=== PATIENT | male | born 1985 | race Caucasian/White ===

== ENCOUNTER 2016-09-06 12:24 | Emergency (ER) | payer OTHER ==
[~2016-09-06] VITALS: Ht 188 cm; Wt 170.8 kg
[2016-09-06 12:36] VITALS: BP 165/97; PULSE 103; TEMP 36.6; O2SAT 95; Ht 188 cm; Wt 170.8 kg
[2016-09-06] MEDS ORDERED: OXYC1TAB3 PO (13:28)
[2016-09-06] MEDS ORDERED: CYCL10TA6 PO (13:28)
--- NOTE | 2016-09-08 19:29 | EMERGENCY ROOM VISIT NOTE ---
ED Visit Note First contact with patient: 13:08 Chief Complaint: Back pain. History of Present Illness: Mr. Aguilar is a 31-year-old white male who ambulates into the ED complaining of lumbar back pain. Historically patient reports when he played football in high school he injured his lumbar back. He reports the person who is taking care of him reported that he had a hairline fracture of one of the lumbar vertebrae. He doesn't remember which vertebrae. He reports he never had x-rays of his spine and he never had follow-up. Since that time he reports intermittently he gets lumbar back pain and has never had it evaluated in the past. Patient reports approximately 3-4 hours ago he was bending over to pick something that fell on the ground and he felt a popping sensation in his lower back. He reports since that time he has been having severe lumbar back pain. He reports his pain as a bandlike discomfort in the L5-S1 area from one sacroiliac joint to the other. He rates his discomfort 7/10. His pain worsens with all movements at the waist and palpation. He has not identified any alleviating factors related to the pain. He has not taken any medications for pain prior to arrival at the hospital. He denies any associated symptoms including fevers, chills, sweats, recent repetitive for direct trauma, abdominal pain, nausea, vomiting, diarrhea, constipation, rectal bleeding, black /tarry stools, urinary symptoms, hematuria, genital paresthesias, bowel and bladder dysfunction, lower extremity weakness/numbness/tingling. Review of Systems: As noted above in history of present illness. 8 body systems were reviewed and found to be negative as noted above. Past Medical History: As previously noted, diabetes, hypertension. Current Medications: Patient denies. Allergies to Medications: Acetaminophen. Social History: Patient is not employed; he feels safe in his home environment; he admits to tobacco and alcohol use. Physical Examination: Vital Signs: Date Time Temp Pulse Resp B/P (MAP) Pulse Ox O2 Delivery O2 Flow Rate FiO2 09/06/16 12:36 36.6 103 22 165/97 95 Room Air GENERAL: 31-year-old male in mild to moderate distress due to pain, nontoxic- appearing, afebrile and hemodynamically stable. NEUROLOGICAL: Awake, alert and oriented to person, place and time. Answering questions appropriately and following commands. Normal gait. Good hand eye coordination. No focal motor or sensory deficits. SKIN: Warm, dry and pink. No soft tissue eruptions or trauma noted. HEENT: Atraumatic and normocephalic. BACK: No tenderness over the bony cervical, thoracic and lumbar spines. No bony deformity, step-offs, swelling or ecchymosis. Moderate tenderness in the lumbar paraspinous musculature in the L4 through S1 area bilaterally with significant muscle spasm. Decreased range of motion in all movements at the waist due to pain and body habitus. Negative straight leg raise test. No CVA tenderness. THORAX: Lungs sounds are clear to auscultation and equal bilaterally with symmetrical chest wall. ABDOMEN: Obese, soft and nontender. Positive bowel sounds in all quadrants. No guarding, rigidity or organomegaly. LOWER EXTREMITIES: No gross bony deformities. No shortening or malrotation. No tenderness in the hip, knees, ankles or feet. 2+ patellar and Achilles deep tendon reflexes intact and equal bilaterally. 4/5 muscle strength in flexion, extension and abduction and abduction of the hips, flexion and extension of the knees and plantar flexion and dorsiflexion of the ankles. Throughout the legs and feet to skin was warm and pink and capillary refill is brisk. He is able to distinguish light sensations through all dermatomes of the lower legs. No calf tenderness or cords. No dependent edema. ED Course: Patient is assessed as noted above. Patient's medication list was reviewed; I noted that he listed hypertension and diabetes on his past medical history and question about this. He reports he has not seen his family doctor and multiple years and years ago he stopped all medications. Additionally he reports in the next 3-4 days she is supposed to follow-up with his family practitioner for both of these medical conditions. Patient was educated about today's findings and instructed on his treatment plan ; he verbalizes understanding and agreement with this plan. Clinical Impression: Lumbar back pain. Lumbar paraspinous muscle spasm. Disposition: Patient discharged home in stable condition; prior to departure he was reassessed and subjectively reported he was feeling the same. Plan: Comfort measures were discussed with the patient including rest, ice, proper lifting and moving techniques, a sliding pain scale of ibuprofen and OxyIR; he was given appropriate narcotic precautions and his name was checked on the state database and no red flags are identified. Additionally patient was given Flexeril for muscle spasm and instructed on achieves. Patient was encouraged to keep his upcoming appointment with his primary care provider and also discusses current back pain. Patient was encouraged return the ED for worsening/uncontrolled pain, uncontrolled fevers, vomiting, abdominal pain, rectal/genital paresthesias, bowel and bladder dysfunction, lower extremity weakness/numbness/tingling or any new/concerning symptoms.
== END 2016-09-06 13:34 | disposition home or self-care (01) ==
LOC: C.EDB 12:26 → C.EDD 13:34
DX: M54.5 Low back pain (principal); M62.830 Muscle spasm of back; E11.9 Type 2 diabetes mellitus without complications; I10 Essential (primary) hypertension; Z72.0 Tobacco use

== ENCOUNTER 2016-09-09 09:49 | Emergency (ER) | payer OTHER ==
[~2016-09-09] VITALS: Ht 188 cm; Wt 151.0 kg
[~2016-09-09 09:49] MED LIST: CYCL10TA6 PO; OXYC1TAB3 PO
[2016-09-09 09:54] VITALS: TEMP 36.4; Ht 188 cm; Wt 151.0 kg
[2016-09-09] MEDS ORDERED: MoRPHine SULFATE 10 MG/ML CARP/VIAL IM STA (10:19)
[2016-09-09] MEDS ORDERED: ONDANSETRON 4MG OD TAB PO ONE (10:30)
--- NOTE | 2016-09-09 10:37 | EMERGENCY ROOM VISIT NOTE ---
History Report prepared by Niranjan: Danitza Vivar Under the Supervision of: Dr. Julio Coates M.D. First contact with patient: 10:11 Chief Complaint: BACK PAIN Stated Complaint: BACK PAIN History of Present Illness The patient is a 31 year old male who presents to the Emergency Room with complaints of worsening lower back pain that started 2 days ago. He describes the pain as a sharp, stabbing pain. He denies abdominal pain. He was evaluated in the ED 2 days ago after walking on [employer] and experiencing a "popping" sensation in his back while bend over. The patient is from [place], but he came here because he was told to come back into the ED if his pain persisted or worsened. The patient states that he has not taken anything at home for the pain. He has not used ibuprofen or Motrin. He uses Flexeril as needed. He was prescribed pain medication after being evaluated in the ED. He states that the medication did not relieve his pain very long so he ran out of pills. The patient adds that he has an old football injury that causes him to have back pain. He also states that he was told in [place] that he has 4 bulging discs. He thinks that they diagnosed the bulging discs with a CT scan. The patient states that he does not work secondary to disability. Source of History: patient Onset: 2 days ago Position: back (lower) Quality: sharp, stabbing Timing: worsening Modifying Factors (Relieving): other (None) Associated Symptoms: No abdominal pain Review of Systems All systems have been listed, reviewed, and are negative other than those previously mentioned. Please see Additional Medical History Sheet. Past Medical & Surgical Medical Problems: (1) Diabetes (2) Hypertension Surgical Problems: (1) History of tonsillectomy Family History Diabetes mellitus Hypertension Social History Smoking Status: Never Smoker Alcohol Use: other (drinks an unspecificed amount) Marital Status: single Housing Status: lives with roommate Occupation Status: disabled Current/Historical Medications Scheduled PRN Cyclobenzaprine Hcl (Flexeril), 10 MG PO Q8 PRN for Muscle Spasms Ibuprofen Tab (Motrin), 600 MG PO Q6H PRN for Pain Allergies Coded Allergies: Acetaminophen (Unverified Adverse Reaction, Intermediate, NAUSEOUS, ) Physical Exam Vital Signs Date Time Temp Pulse Resp B/P (MAP) Pulse Ox O2 Delivery O2 Flow Rate FiO2 09/09/16 10:57 94 16 179/129 94 Room Air 09/09/16 09:54 36.4 100 18 172/117 96 Room Air Physical Exam GENERAL: Patient awake, alert, oriented x 3. Patient follows commands. Patient does not appear toxic. Patient is adequately hydrated and well- nourished. SKIN: No erythema, pallor, cyanosis or rash HEENT: Normal head, pupils equal, reactive to light and accommodation. LUNGS: Clear to auscultation. No wheezes, no rales, no rhonchi. HEART: No murmurs. No gallops. No rubs BACK: No deformity ABDOMEN: Obese, no masses, no rebound, no hepatomegaly or splenomegaly. EXTREMITIES: Negative straight leg raise bilaterally. No signs of trauma. No pedal or pretibial edema. No calf or thigh tenderness. NEUROLOGIC: Cranial nerves II-XII within normal limits. No gross motor sensory function deficits. Medical Decision & Procedures Medications Administered Medications (Trade) Dose Ordered Sig/Alexander Route Start Time Stop Time Status Last Admin Dose Admin Morphine Sulfate (MoRPHine SULFATE INJ) 10 mg NOW STAT IM 09/09/16 10:19 09/09/16 10:20 DC 09/09/16 10:27 10 MG Ondansetron HCl (Zofran Odt) 4 mg ONE ONCE PO 09/09/16 10:30 09/09/16 10:31 DC 09/09/16 10:28 4 MG ED Course 1011: Past medical records reviewed. The patient was evaluated in room C6. A complete history and physical examination was performed. 1019: Ordered Morphine Sulfate 10 mg IM 1030: Ordered Zofran Odt 4 mg PO 1106: Upon reevaluation, the patient appeared to have improvement of his symptoms. I discussed today's findings with him. He verbalized agreement of the treatment plan. He was discharged home. Medical Decision Nurses notes reviewed. Medical history sheet reviewed. Differential diagnosis includes but is not limited to: lumbar strain, ruptured nucleus pulposus, discitis, cauda equina. The patient appears to have acute on chronic lower back pain. He's had imaging studies in the past. The patient was given an IM injection of morphine which helped considerably. The patient states that he his pain was gone at time of discharge. The patient will be maintained on ibuprofen. He will need to follow -up with his family physician. The patient may need more imaging studies in the near future. The patient's blood pressure is elevated which may be partially due to his pain. He will need to follow-up regarding his hypertension. Blood Pressure Screening Patient's blood pressure: Elevated blood pressure Blood pressure disposition: Referred to PCP Impression Primary Impression: Low back pain Additional Impression: Hypertension Scribe Attestation The scribe's documentation has been prepared under my direction and personally reviewed by me in its entirety. I confirm that the note above accurately reflects all work, treatment, procedures, and medical decision making performed by me. Departure Information Dispostion Home / Self-Care Prescriptions Ibuprofen Tab (MOTRIN) 600 Mg Tab 600 MG PO Q6H Y for Pain, #40 TAB Prov: Julio Coates M.D. 09/09/16 Referrals No Doctor, Assigned (PCP) Forms HOME CARE DOCUMENTATION FORM, IMPORTANT VISIT INFORMATION Patient Instructions Back Pain - [facility], ED Hypertension Poss, My [facility] Additional Instructions 600 mg ibuprofen every 6 hours until pain is resolved. Apply heat to your lower back intermittently over the next 2 days. Follow-up with your family physician within the next week. Your blood pressure is elevated. It is important he follow-up with your family physician soon. Avoid any heavy lifting or straining. Problem Qualifiers Primary Impression: Low back pain Additional Impression: Hypertension Hypertension type: unspecified secondary hypertension Qualified Codes: I15.9 - Secondary hypertension, unspecified
[2016-09-09 10:57] VITALS: BP 179/129; PULSE 94; O2SAT 94
[2016-09-09] MEDS ORDERED: IBUP-1427 PO (11:14)
== END 2016-09-09 11:34 | disposition home or self-care (01) ==
LOC: C.EDB 09:51 → C.EDC 11:34
DX: M54.5 Low back pain (principal); I15.9 Secondary hypertension, unspecified; E11.9 Type 2 diabetes mellitus without complications; Z83.3 Family history of diabetes mellitus; Z82.49 Family history of ischemic heart disease and other diseases of the circulatory system